=== PATIENT | female | born 1955 | race Caucasian/White ===

== ENCOUNTER 2017-03-19 08:58 | Emergency (ER) | payer SELFPAY ==
[~2017-03-19] VITALS: Ht 170.2 cm; Wt 102.3 kg
[~2017-03-19 08:58] MED LIST: LOSA50TA37 PO
[2017-03-19 09:04] VITALS: BP 174/107; PULSE 85; RESP 15; O2SAT 99
--- NOTE | 2017-03-19 09:16 | ED.REPORT ---
HPI-General Illness Date of Service Mar 19, 2017 ED Provider: Mannie Lawton MD The pt is a 61 y/o female presenting to the ED c/o anxiety. Other symptoms include a non-productive cough. Denies fevers, headaches, or SOB. The pt describes having cold for the last 3 weeks w/ the congestion causing her difficulty breathing, which in turn is giving her anxiety. Her anxiety decreases when she goes outside for walks. The pt reports having 4 nasal surgeries which causes her increased congestion.The pt went to and was given 5 pills of anti-anxiety medication. She also reports having winter depression. Nursing Notes Stated Complaint: ANXIETY Chief Complaint: Anxiety Nursing Notes Reviewed: Yes Allergies: Coded Allergies: codeine (Verified Allergy, Unknown, Nausea,Vomiting, 12/02/13) Scheduled Losartan Potassium (Losartan Potassium) 50 Mg Tablet 50 MG PO DAILY Scheduled PRN HydrOXYzine HCl (HydrOXYzine HCl) 10 Mg Tablet 10 MG PO TID PRN PRN For Anxiety or Agitation General Time Seen by MD: 09:11 Chief Complaint Other (Anxiety ) Hx Obtained From: Patient Arrived By: Walk-in Sudden in Onset?: Yes Onset Occurred: More than a week ago... (3 weeks) Symptom Duration: Waxes and wanes Recent Healthcare: No recent hospitalization, Recent doctor visit Similar Sx Previous: Yes Past Medical History Past Medical History Pt reports having "winter depression" Past Surgical History 4 nasal surgeries; Smoking History Unknown if Ever Smoker Social History None reported Ambulatory Status Independent Review of Systems + Difficulty breathing due to nasal congestion; Full Review of Systems Constitutional: Denies: Fever Ears / Nose / Throat: Reports: Nasal congestion Respiratory: Reports: Non-productive cough, Denies: Shortness of breath Neurologic: Denies: Headache Psychiatric: Reports: Anxiety Complete sys rev & neg: except as marked. Physical Exam Vital Signs Vital Signs Date Time Temp Pulse Resp B/P Pulse Ox O2 Delivery O2 Flow Rate FiO2 03/19/17 09:04 35.5 85 15 174/107 99 Room Air Initial VS: Reviewed General/Constitutional: Well-developed, Well-nourished Head / Eyes: Atraumatic, Normocephalic, PERRL ENT: Mucous membranes moist, Conjunctiva normal, No scleral icterus Neck: Supple, Non-tender, Full range of motion Respiratory: Breath sounds normal, Clear to auscultation, No respiratory distress Cardiovascular: Regular rate & rhythm, Heart sounds normal, Intact distal pulses Extremities: Vascular intact, Neuro intact, No swelling, No tenderness Skin: Warm, Dry, No cyanosis Neurologic: Alert, Oriented, Nonfocal Psychiatric: Mood/affect normal, Behavior normal, Normal thought content Head / Eyes: Normocephalic, PERRL, EOMI No sinus tenderness; Re-Eval/Medical Decision Med Decision/Clinical Course 61-year-old female presenting complaining of anxiety. She is getting over an upper respiratory infection denies any fevers, shortness breath, chest pain. She reports this is making her feel anxious. Her vital signs are stable. Her lungs are clear. She started her sertraline yesterday. I counseled her to continue this. I gave her prescription for hydroxyzine to use as needed. Counseled her that we do not prescribe benzodiazepines for chronic conditions and she will follow-up with her primary doctor today. She has no thoughts of hurting herself or others. Return precautions given. Source of Hx: Old records Counseled Regarding: Diagnosis, Need for follow-up, When/why to return to ED Discharge & Departure Primary Impression: Anxiety Additional Impression: URI (upper respiratory infection) URI type: unspecified URI Qualified Code: J06.9 - Acute upper respiratory infection, unspecified Disposition: Home Discharge Condition All VS Reviewed: Yes Condition: Stable Additional Instructions: Thank for you entrusting us with your care today. Please take the Hydroxyzine I prescribed for you but make sure to avoid driving because it may make your drowsy. The anxiety medications should be taken daily but may take up to 4-6 works for them to take effect. See your primary care provider as soon as you are able to for further management of your medications. You are also getting over an upper respiratory infection. Please return to the emergency department if you develop any shortness of breath, chest pain, nausea , fevers, vomiting, or a desire to hurt yourself or others. I hope you feel better soon. Referrals: OTHER,PHYSICIAN (PCP) (Family) Scribe Attestation Portions of this note were transcribed by Kenneth Rodriguez. I, Dr. Lawton personally performed the history, physical exam and medical decision-making; I reviewed and confirmed the accuracy of the information in the transcribed note. copies to: OTHER,PHYSICIAN Mannie Lawton MD Mar 19, 2017 09:16 Kenneth Rodriguez Mar 19, 2017 09:50
[2017-03-19] MEDS ORDERED: HYDR-3605 PO (09:48)
== END 2017-03-19 10:01 | disposition home or self-care (01) ==
LOC: SED 08:58
DX: F41.9 Anxiety disorder, unspecified (principal); J06.9 Acute upper respiratory infection, unspecified; R06.00 Dyspnea, unspecified; Z98.890 Other specified postprocedural states; Z88.5 Allergy status to narcotic agent